=== PATIENT | female | born 1980 | race Caucasian/White ===

== ENCOUNTER 2020-09-26 15:05 | Outpatient (CLI) | payer BC ==
--- NOTE | 2020-09-26 16:33 | Ultrasound Report ---
PROCEDURE: Abdomen Limited INDICATIONS: ELEVATED LIVER ENZYMES LEVEL TECHNIQUE: Real-time focused scanning was performed of the abdomen, with image documentation. COMPARISON: None. FINDINGS: Increased hepatic parenchymal echogenicity indicative of diffuse hepatic steatosis. No focal hepatic mass. No intrahepatic biliary ductal dilatation. Normal caliber common duct measuring 4 mm at the carole hepatis. Normal appearance of the gallbladder with no shadowing calculus, sludge, wall thickening, or perichol ecystic fluid. Normal appearance of the right kidney. Visualized portion of the pancreas are unremarkable IMPRESSION: Hepatic stenosis. Reviewed by: Viraj Gardner MD on 09/26/2020 4:32 PM PDT Approved by: Viraj Gardner MD on 09/26/2020 4:32 PM PDT Station ID: [id number]
== END 2020-09-26 15:06 | disposition home or self-care (01) ==
LOC: DI 15:05
PROVIDERS: ATTEND Physician Assistant
DX: R74.01 Elevation of levels of liver transaminase levels (principal); K76.0 Fatty (change of) liver, not elsewhere classified
CPT/HCPCS: 76705

== ENCOUNTER 2021-02-13 13:37 | Outpatient (CLI) | payer BC | END 2021-02-13 13:38 | disposition home or self-care (01) | LOC: COV 13:37 | PROVIDERS: ATTEND Family Medicine | DX: U07.1 COVID-19 (principal) ==